=== PATIENT | female | born 1945 | race Caucasian/White ===

== ENCOUNTER 2016-05-26 12:58 | Outpatient (CLI) | payer MEDICARE, OTHER | END 2016-05-26 12:59 | disposition home or self-care (01) | DX: C50.919 Malignant neoplasm of unspecified site of unspecified female breast (principal); N95.8 Other specified menopausal and perimenopausal disorders ==

== ENCOUNTER 2016-07-17 11:20 | Outpatient (CLI) | payer MEDICARE, OTHER | END 2016-07-17 11:21 | disposition home or self-care (01) | LOC: SC 11:20 | PROVIDERS: ATTEND Nurse Practitioner Family | DX: G47.33 Obstructive sleep apnea (adult) (pediatric) (principal) | CPT/HCPCS: 99214; G0463; 99212 ==

== ENCOUNTER 2016-12-09 14:02 | Outpatient (CLI) | payer MEDICARE, OTHER ==
--- NOTE | 2016-12-09 17:33 | Mammography Report ---
DIGITAL BILATERAL DIAGNOSTIC MAMMOGRAM: 12/09/2016 COMPARISON: Mammogram 11/22/2015. INDICATION: Prior left breast cancer. Surgery approximately 3 years ago. TECHNIQUE: Bilateral MLO and CC breast views with and without displacement. FINDINGS: The breast parenchyma is heterogeneously dense, which may limit the sensitivity of mammogr aphy. No mass, architectural distortion, or concerning cluster of microcalcifications is seen. There are bilateral subpectoral implants. There is a scar marker and soft tissue loss with postsurgical distortion of the left breast, stable f indings. IMPRESSION: BI-RADS CATEGORY 2, BENIGN FINDINGS. Recommend annual mammography. STANDARD QUALIFYING STATEMENTS 1. This examination was reviewed with the aid of Computer-Aided Detection (CAD). 2. A negative or benign imaging report should not delay biopsy if clinically suspicious findings are present. Consider surgical consultation if warranted. More than 5% of cancers are not identified by i maging. 3. Dense breasts may obscure an underlying neoplasm. JOB #: [id number] EXT JOB #:
== END 2016-12-09 14:03 | disposition home or self-care (01) ==
LOC: DI 14:02
PROVIDERS: ATTEND Internal Medicine Hematology & Oncology
DX: C50.412 Malignant neoplasm of upper-outer quadrant of left female breast (principal)
CPT/HCPCS: 77066

== ENCOUNTER 2017-07-03 16:30 | Outpatient (CLI) | payer MEDICARE, OTHER ==
--- NOTE | 2017-07-04 15:48 | MRI Report ---
EXAM: MRI LUMBAR SPINE WITHOUT CONTRAST EXAM DATE: 07/03/2017 05:19 PM. CLINICAL HISTORY: Low back pain. Right lower extremity radiculopathy. COMPARISON: None. TECHNIQUE: Multiplanar, multisequence T1-weighted and fluid-sensitive sequences of the lumbar spine f rom T12 to S1 without contrast. Other: None. FINDINGS: Spinal Cord: The conus terminates at T12-L1. Unremarkable appearance of the conus medullaris. Alignment: 25 degrees of dextroscoliosis centered at L1-L2. Rightward lateral subluxation of L2 on L3 and L3 on L4. Bone Marrow: Five [id number]-[id number]-amncpjv lumbar vertebral bodies are assumed. Moderately prominent multileve l degenerative endplate signal changes, most severe at and below L2. No acute compression fracture de formity. Diffuse degenerative disk disease and facet arthropathy. Varying degrees of hypertrophic deg enerative vertebral body marginal spurring at all lumbar levels. Disk Levels/Facets: T12-L1: Mild to moderate chronic degenerative changes but without significant stenosis or focal disk herniation. L1-L2: Moderately prominent chronic degenerative disk disease and facet arthropathy. Broad-based disk bulge. No significant stenosis. L2-L3: Moderate to severe degenerative disk disease. Broad-based disk bulge with osteophyte, asymmetr ic, especially bulky far laterally to the left. Mild central canal stenosis. Foraminal narrowing is n egligible on the right but at least moderate on the left. L3-L4: Moderate to severe chronic degenerative disk disease and facet arthropathy. Broad-based disk b ulge with osteophyte is present extending laterally into both foramina. Moderate to severe central st enosis. Severe right lateral recess stenosis. Bilateral moderate to severe foraminal stenosis. Large bulky asymmetric far right lateral disk osteophyte complex protrusion. L4-L5: Moderately prominent degenerative disk disease and facet arthropathy. Prominent chronic far ri ght lateral hypertrophic degenerative osteophytic spurring. No focal disk extrusion. Patent central c anal and neural foramina. L5-S1: Chronic moderate to severe degenerative disk disease. Moderately prominent facet arthropathy. Diffuse annular disk bulge, most bulky to the right of midline. Disk bulge with osteophyte extends la terally into both foramina. Asymmetric far right lateral broad-based disk osteophyte complex is also present. Patent central canal. Mild right lateral recess stenosis. Moderate left and moderate to bobby re right foraminal stenosis. Musculature: Moderately prominent diffuse posterior paraspinal muscle fatty atrophy. Other: None. IMPRESSION: 1. Multiple chronic-appearing degenerative subluxations and approximately 25 degrees of upper lumbar dextroscoliosis. 2. Moderate to severe central stenosis at L3-L4 and severe right lateral recess stenosis at L3-L4 lev el. 2. Prominent chronic multilevel hypertrophic degenerative marginal spurring. 4. Broad-based disk bulges and protrusions with osteophyte are present with extension to varying degr ees into the bilateral neural foramina at multiple levels. 5. Potentially significant multilevel degenerative foraminal stenosis. Foraminal narrowing appears es pecially prominent on the left at L2-L3, left greater than right at L3-L4 and on the right at L5-S1. Comment: The following findings are so common in adults without low back pain that while we report th eir presence, they must be interpreted with caution and in the context of the clinical situation. (Re nichol Mack et al, Spine 2001) Prevalence of findings in patients without low back pain: Disk degeneration (any evidence): 92% Disk desiccation/T2 signal loss: 83% Disk height loss: 56% Disk bulge: 64% Disk protrusion: 32% Annular tear/high intensity zone: 38% [facility] Referring Provider Line: [phone] SITE ID: [id number]
== END 2017-07-03 16:31 | disposition home or self-care (01) ==
LOC: DI 16:30
PROVIDERS: ATTEND Orthopaedic Surgery
DX: M54.5 Low back pain (principal); M48.061 Spinal stenosis, lumbar region without neurogenic claudication; M51.86 Other intervertebral disc disorders, lumbar region
CPT/HCPCS: 72148

== ENCOUNTER 2017-09-14 09:32 | Outpatient (CLI) | payer MEDICARE, OTHER | END 2017-09-14 09:33 | disposition home or self-care (01) | LOC: SC 09:32 | PROVIDERS: ATTEND Nurse Practitioner Family | DX: G47.33 Obstructive sleep apnea (adult) (pediatric) (principal) | CPT/HCPCS: 99213; G0463; 99212 ==

== ENCOUNTER 2017-11-26 08:48 | Outpatient (CLI) | payer MEDICARE, OTHER ==
--- NOTE | 2017-11-26 11:21 | Mammography Report ---
Reason: AFSANEH lee IMPS ELIZABET Procedure Date: 11/26/2017 Accession Number: [id number] / [id number] Procedure: RADHAMES - Diagnostic Bilat 3D Elizabet CPT Code: 12483 FULL RESULT: EXAM: Diagnostic Bilat 3D Elizabet DATE: 11/26/2017 9:58 AM CLINICAL HISTORY: 72 year-old nulliparous female with personal history of left breast cancer status post lumpectomy and radiation in 2013. TECHNIQUE: Bilateral CC and MLO views were obtained with 2-D and 3-D technique in implant displaced fashion and non-implant displaced fashion in 2-D. COMPARISON: 12/09/2016, 11/22/2015, 05/08/2015, 10/26/2014. FINDINGS: The breasts demonstrate heterogeneously dense fibroglandular parenchyma bilaterally. Intact bilateral breast implants are identified. Postsurgical changes are again seen in the left breast and appear overall stable. No suspicious mass, cluster of microcalcifications or architectural distortion is identified. IMPRESSION: Benign findings RECOMMENDATION: Recommend routine annual Screening mammography unless otherwise clinically indicated. BIRADS CATEGORY 2: Benign findings STANDARD QUALIFYING STATEMENTS: 1. This examination was not reviewed with the aid of Computer-Aided Detection (CAD). 2. A negative or benign imaging report should not delay biopsy if clinically suspicious findings are present. Consider surgical consultation if warrented. More than 5% of cancers are not identified by imaging. 3. Dense breasts may obscure an underlying neoplasm. 4. This examination was reviewed with the aid of 3D imaging (tomography).
== END 2017-11-26 08:49 | disposition home or self-care (01) ==
LOC: DI 08:48
PROVIDERS: ATTEND Nurse Practitioner Adult Health
DX: C50.412 Malignant neoplasm of upper-outer quadrant of left female breast (principal)
CPT/HCPCS: 77062

== ENCOUNTER 2018-08-18 12:14 | Day surgery (SDC) | payer MEDICARE, OTHER ==
[2018-08-18] MEDS ORDERED: LACTATED RINGERS 1,000 ML IV ONE ×2 (12:39→14:35)
[2018-08-18] MEDS ORDERED: MIDAZOLAM 2 MG/2 ML VIAL IVP ONE (13:56)
[2018-08-18] MEDS ORDERED: fentaNYL 250 MCG/5 ML VIAL IVP ONE (13:56)
[2018-08-18 14:48] VITALS: BP 106/70
== END 2018-08-18 12:15 | disposition home or self-care (01) ==
LOC: SDS 12:14
PROVIDERS: ATTEND Surgery
PROC: 0DJD8ZZ Inspection of Lower Intestinal Tract, Via Natural or Artificial Opening Endoscopic (ICD-10-PCS; principal; 2018-08-18 12:30)
DX: R19.5 Other fecal abnormalities (principal); K64.8 Other hemorrhoids; I10 Essential (primary) hypertension; Z79.899 Other long term (current) drug therapy; Z79.82 Long term (current) use of aspirin; Z80.9 Family history of malignant neoplasm, unspecified
CPT/HCPCS: 45378; J7120

== ENCOUNTER 2018-09-01 15:44 | Outpatient (CLI) | payer MEDICARE, OTHER | END 2018-09-01 15:45 | disposition home or self-care (01) | LOC: SC 15:44 | PROVIDERS: ATTEND Nurse Practitioner Family | DX: G47.33 Obstructive sleep apnea (adult) (pediatric) (principal) | CPT/HCPCS: 99214; G0463; 99212 ==

== ENCOUNTER 2019-05-12 08:51 | Outpatient (CLI) | payer MEDICARE, OTHER ==
[2019-05-12 16:25] LABS: HEMOGLOBIN A1C 0.81 g/dL; HEMOGLOBIN A1C % 7.4 % (4.6-6.2)
[2019-05-12 16:28] LABS: ALBUMIN/GLOBULIN RATIO 1.4 (1.0-2.2); ALKALINE PHOSPHATASE 46 IU/L (42-121); ALT ALANINE AMINOTRANSFERASE 33 IU/L (10-60); AST ASPARTATE AMINOTRANSFERASE 27 IU/L (10-42); BILIRUBIN,TOTAL 0.5 mg/dL (0.2-1.0); BUN - BLOOD UREA NITROGEN 16 mg/dL (6-20); CALCIUM 9.1 mg/dL (8.5-10.3); CARBON DIOXIDE - CO2 28 mmol/L (21-32); CHLORIDE 100 mmol/L (101-111); CHOL/HDL RATIO 3.4 (<4.4); CHOLESTEROL 154 mg/dL; CREATININE 0.6 mg/dL (0.4-1.0); GLUCOSE 161 mg/dL (70-100); HDL CHOLESTEROL 45 mg/dL; LDL CHOLESTEROL,CALCULATED 77 mg/dL; LDL/HDL RATIO 1.7 (<4.4); SODIUM 138 mmol/L (135-145); TOTAL PROTEIN 6.9 g/dL (6.7-8.2); VLDL CHOLESTEROL 32 mg/dL
== END 2019-05-12 08:52 | disposition home or self-care (01) ==
LOC: LAB.S 08:51
PROVIDERS: ATTEND Physician Assistant
DX: E11.9 Type 2 diabetes mellitus without complications (principal); E78.2 Mixed hyperlipidemia
CPT/HCPCS: 36415; 80053; 80061; 83036; 83721

== ENCOUNTER 2019-09-07 10:24 | Outpatient (CLI) | payer MEDICARE, OTHER ==
--- NOTE | 2019-09-07 11:17 | SLEEP CARE CONSULTATION ---
Information from patient questionnaire entered by Guillermina Gibbons. I have reviewed and concur with the information entered by Guillermina Gibbons. This document represents the service I personally performed and the decisions made by me, Angelica Singleton, RN, MSN, [employer]. History of Present Illness Service Date and Time: 09/07/2019 1024 Previous diagnosis: Severe, Obstructive Sleep Apnea-Hypopnea Syndrome AHI: 45.4 Reason for follow up: annual Accompanied by: Spouse Equipment type: CPAP Equipment obtained from: [employer] (transfered last year - getting supplies as needed) Mask style: Nasal (wisp) Mask brand: Respironics Backup mask available: Yes (old mask ) Last cushion change: a month ago Prior sleep studies: Yes Year and Where: 2015 [facility] Type of Sleep Study: Polysomnography CPAP Compliance Data - Data Reviewed with Patient Average duration of nightly device use: 10h 7m Compliance rate %: 99.4 Current pressure setting (cmH2O): 10 Humidity settin Heated hose settin Average residual AHI: 0.9 Average large leak: 10m 43s Subjective Patient concerns: reports: air blowing in eyes (could be from hand towel barrier over vent per patient so air does not disturb spouse), mask leak noise (was occurring for a while and waking to dry eyes but none recently. Does not recall if better after new cushion. ), dry mouth, nose, throat (occasional dry mouth a couple times a months ), other (runny nose throughout the day years . uses Claritn 10mg daily for past idiopathic mild swelling of throat. ). denies: aerophagia, mask discomfort, condensation in mask/hose, nasal congestion, epistaxis Observed to snore while using device: No Current pressure setting perceived as: comfortable On therapy, patient: reports: awakening more refreshed, being more awake and alert during the day, more rested overall. denies: sleeping better, drowsiness while driving Current [place] Sleepiness Scale score: 1 Allergies and Home Medications Known drug allergies: Yes (see list ) Home medication list reviewed: No ( diabetic medication change to Metformin ER ) Review of Systems Review of systems same as previous: Yes Physical Exam Blood Pressure: 120/70 Cuff size: regular Heart Rate: 56 (regular) O2 Saturation: 96 Height: 5 ft Weight: 158 lb (stable) Body Mass Index: 30.8 BMI Classification: Obese Impression and Plan 1. Obstructive Sleep Apnea-Hypopnea Syndrome, severe, with good treatment compliance and good apnea control. On CPAP therapy, the patient has better sleep quality and is more rested overall. Patient is a long sleeper, currently averaging 10 hours, her past two years average was 9.5 and 9.45 hours. Thus she is advised to follow up with PCP if she finds she needs more than 10 hours of sleep consistently to rule if due to other medical condition. To reduce risk of air going into eyes from towel cover to prevent vent bothering spouse, I advised to put a pillow barrier instead between spouse and patient. For intermittent oral dryness, she can adjust humidity. Verbal instructions given and can have [employer] instruct. In addition the chronic rhinorrhea could be from allergies and Claritin not working any more. She may need to try another antihistamine or nasal spray. She is advised to follow up with PCP for further evaluation due to history of idiopathic mild throat swelling that she now takes her claritin for. Patient has gained a few pounds. Currently patients BMI is 30.7 obesity class . Obesity increases the risk of apnea, CPAP pressure requirements and overall health risks especially cardiovascular and diabetes. Thus patient is advised to lose weight. A diet consultation can be helpful in achieving optimal weight loss goals. The BMI chart was reviewed. Patient encouraged to discuss their weight loss goals with their PCP and consider a referral to a hand therapist. The patient's CPAP pressure should accommodate some weight loss. Symptoms to repo rt for additional pressure adjustment discussed. Patient's apnea severity and rationale for treatment to reduce apnea, improve sleep quality and reduce cardiovascular and cerebrovascular events was reviewed. I also reviewed the benefit of consistent device use of CPAP for hypertension, diabetes. * Continue auto CPAP pressure at 10 cmH2O * Implement methods to reduce oral dryness/ rhinorrhea * Notify me if snoring with mask or feeling that the pressure is too much or too little * Attempt to lose weight * Call this office if any problems using CPAP * Return for follow up in 1 year , or sooner if concerns arise Visit Type: In Office Time Spent with Patient (minutes): 31 Provider Statement: I spent 100% of the Face to Face Visit with the patient with greater than 50% spent counseling the patient and coordination of care.
[2019-09-07 11:18] VITALS: BP 120/70
== END 2019-09-07 10:25 | disposition home or self-care (01) ==
LOC: SC 10:24
PROVIDERS: ATTEND Nurse Practitioner Family
DX: G47.33 Obstructive sleep apnea (adult) (pediatric) (principal); E66.9 Obesity, unspecified; Z68.30 Body mass index [BMI] 30.0-30.9, adult
CPT/HCPCS: 99214; G0463; 99212

== ENCOUNTER 2020-06-05 10:36 | Outpatient (CLI) | payer MEDICARE, OTHER ==
--- NOTE | 2020-06-05 16:49 | XRAY Report ---
PROCEDURE: Hip w/Pelvis 2-3V LT INDICATIONS: LEFT HIP PAIN TECHNIQUE: AP pelvis with lateral view(s) of the left hip(s). COMPARISON: None. FINDINGS: Bones: No fractures or dislocations. Symmetric appearing bilateral hip joint osteoarthritic changes are seen. No evidence of avascular necrosis of femoral head. Pelvic ring appears intact. No suspici ous bony lesions. Degenerative disc disease in visualized lower lumbar spine is seen. Soft tissues: The visualized bowel gas pattern is normal. No suspicious soft tissue calcifications. IMPRESSION: Bilateral hip joint osteoarthritis. No left hip fracture or dislocation. No evidence of a vascular necrosis. Degenerative disc disease in lower lumbar spine. Reviewed by: Jonny Boyle MD on 06/05/2020 4:47 PM PDT Approved by: Jonny Boyle MD on 06/05/2020 4:47 PM PDT Station ID: [id number]
== END 2020-06-05 10:37 | disposition home or self-care (01) ==
LOC: DI 10:36
PROVIDERS: ATTEND Registered Nurse
DX: M16.0 Bilateral primary osteoarthritis of hip (principal); M47.816 Spondylosis without myelopathy or radiculopathy, lumbar region

== ENCOUNTER 2020-06-20 15:44 | Outpatient (CLI) | payer MEDICARE, OTHER ==
--- NOTE | 2020-06-20 17:03 | Ultrasound Report ---
PROCEDURE: Ext Limited Non Vascular INDICATIONS: SWELLING LOWER LIMB LEFT. Patient reports the area of concern is the left hip region pe rsisting for approximately 2 years. TECHNIQUE: Real-time scanning was performed of the area of patient's clinical concern, centered on t he left hip area, with image documentation. COMPARISON: Prior hip plain film imaging 06/05/2020. Prior MR LS-spine 07/03/2017.. FINDINGS: Technique assessment over the area of patient's clinical concern reveals no underlying cystic or xuan d mass, or architectural distortion within the soft tissues. A lipoma is not identified. IMPRESSION: Etiology of current symptomatology is not found by ultrasound. MR scanning without and w ith contrast may be warranted if clinical concerns persist or increase. Reviewed by: Nick Vigil MD on 06/20/2020 5:02 PM PDT Approved by: Nick Vigil MD on 06/20/2020 5:02 PM PDT Station ID: [id number]
== END 2020-06-20 15:45 | disposition home or self-care (01) ==
LOC: DI 15:44
PROVIDERS: ATTEND Registered Nurse
DX: R22.42 Localized swelling, mass and lump, left lower limb (principal)

== ENCOUNTER 2020-09-12 10:29 | Outpatient (CLI) | payer MEDICARE, OTHER ==
--- NOTE | 2020-09-12 11:03 | SLEEP CARE CONSULTATION ---
Information from patient questionnaire entered by Vibha Issa. I have reviewed and concur with the information entered by Vibha Issa. This document represents the service I personally performed and the decisions made by , Chantale Weber ARNP. History of Present Illness Service Date and Time: 09/12/2020 1029 Previous diagnosis: Severe, Obstructive Sleep Apnea-Hypopnea Syndrome AHI: 45.4 (in 2016) Reason for follow up: annual (last seen 08/2019) Equipment type: CPAP Equipment obtained from: [employer] (getting supplies as needed) Mask style: Nasal Mask brand: Respironics (Wisp) Backup mask available: Yes (old mask) Last cushion change: 2 weeks Prior sleep studies: Yes Year and Where: 2016 - [facility] HPI additional information: BRENDA WANG was diagnosed to have severe, AHI 45.4, obstructive sleep apnea-hypopnea syndrome and returned today with spouse for CPAP therapy annual follow-up. CPAP Compliance Data - Data Reviewed with Patient Average duration of nightly device use: 9 hr 52 min Compliance rate %: 100 (180 days) Current pressure setting (cmH2O): 10 Humidity settin Heated hose settin Average residual AHI: 0.7 Average large leak: 11 min 26 sec Subjective Patient concerns: reports: mask leak noise (adjustment usually resolves this). denies: aerophagia, mask discomfort, air blowing in eyes, condensation in mask/hose, nasal congestion, dry mouth, nose, throat, epistaxis, other Observed to snore while using device: No Current pressure setting perceived as: comfortable On therapy, patient: reports: sleeping better, awakening more refreshed, being more awake and alert during the day, more rested overall. denies: drowsiness while driving Initial [place] Sleepiness Scale score: 4 (in 2016) Current [place] Sleepiness Scale score: 1 Allergies and Home Medications Home medication list reviewed: Yes (no changes) Review of Systems Review of systems same as previous: Yes (no changes) Physical Exam Heart Rate: 77 O2 Saturation: 96 Height: 5 ft 1 in Weight: 139 lb Body Mass Index: 26.2 BMI Classification: Overweight Impression and Plan 1. Obstructive Sleep Apnea-Hypopnea Syndrome, severe, with excellent treatment compliance and excellent apnea control. On CPAP therapy, the patient has better sleep quality and is more rested overall. I discussed with patient that [employer] has a recall on several devices like the patients machine. Patient was encouraged to register their device online with [employer] for the recall to see if their device is affected. If their device is affected they should start a claim. Patient denies any black particles seen in machine or hoses, any unusual odors coming from device. Patient has not experienced any physical symptoms such as upper airway irritation, headache, skin or eye irritation, asthma, nausea/vomiting, difficulty breathing or chest pain. Patient informed that they may use an inline CPAP filter that they can obtain online to reduce chance of any particles being inhaled or ingested. We discussed thoroughly the health risks of not using the CPAP versus continuing use with the filter in place. If patient is not able to sleep due to waking up choking, gasping for air or other respiratory distress that they may decide to continue using it until it is either replaced or repaired. Since the patients current machine is at least 5 years old the patient may opt to update their device with a device that is not on the recall. The patients CPAP is over 5 years old and of reasonable use. Thus, the CPAP will be updated. A DWO prescription will be made. Compliance guidelines for new device and follow up discussed. Patient voiced understanding and agreement with plan. Patient's apnea severity and rationale for treatment to reduce apnea, improve sleep quality and reduce cardiovascular and cerebrovascular events was reviewed. I also reviewed the benefit of consistent device use of CPAP for hypertension and diabetes. * Continue CPAP pressure at 10 cmH2O * Updates device and supplies * Notify me if snoring with mask or feeling that the pressure is too much or too little * Attempt to lose weight * Call this office if any problems using CPAP * Return for follow up one month after obtaining new device, or sooner if concerns arise Counseling Topics: Spare mask, Weight loss health impact Visit Type: In Office Other Participants: Spouse/Significant Other Time Spent with Patient (minutes): 22 Provider Statement: I spent 100% of the Face to Face Visit with the patient with greater than 50% spent counseling the patient and coordination of care.
== END 2020-09-12 10:30 | disposition home or self-care (01) ==
LOC: SC 10:29
PROVIDERS: ATTEND Nurse Practitioner Family
DX: G47.33 Obstructive sleep apnea (adult) (pediatric) (principal)
CPT/HCPCS: 99213; G0463; 99212

== ENCOUNTER 2020-11-20 10:32 | Outpatient (CLI) | payer MEDICARE, OTHER ==
--- NOTE | 2020-11-20 10:53 | SLEEP CARE CONSULTATION ---
Information from patient questionnaire entered by Guillermina Gibbons. I have reviewed and concur with the information entered by Guillermina Gibbons. This document represents the service I personally performed and the decisions made by , Chantale Weber ARNP. History of Present Illness Service Date and Time: 11/20/2020 1032 Previous diagnosis: Severe, Obstructive Sleep Apnea-Hypopnea Syndrome AHI: 45.4 (in 2016) Reason for follow up: first compliance after device update Equipment type: CPAP Equipment obtained from: [employer] (getting supplies as needed) Mask style: Full face Backup mask available: Yes (old mask) Last cushion change: 1.5 weeks [facility] Type of Sleep Study: Polysomnography HPI additional information: BRENDA WANG was diagnosed to have severe, AHI 45.4, obstructive sleep apnea-hypopnea syndrome and returned today for CPAP therapy first compliance after updating device follow-up. Sleep Study - Results Prior [facility]: Yes [facility] Compliance Data - Data Reviewed with Patient Average duration of nightly device use: 10 hours 1 minute Compliance rate %: 100 Current pressure setting (cmH2O): 10 Humidity settin Heated hose settin Average residual AHI: 0.8 Average large leak: 0 seconds Subjective Patient concerns: denies: aerophagia, mask discomfort, air blowing in eyes, mask leak noise, condensation in mask/hose, nasal congestion, dry mouth, nose, throat, epistaxis, other Observed to snore while using device: No Current pressure setting perceived as: comfortable On therapy, patient: reports: sleeping better, awakening more refreshed, being more awake and alert during the day, more rested overall. denies: drowsiness while driving Initial [place] Sleepiness Scale score: 4 (in 2016) Current [place] Sleepiness Scale score: 1 Allergies and Home Medications Home medication list reviewed: Yes (no changes) Review of Systems Review of systems same as previous: Yes (no changes) Physical Exam Heart Rate: 70 O2 Saturation: 98 Height: 5 ft 1 in Weight: 138 lb Body Mass Index: 26.0 BMI Classification: Overweight Impression and Plan 1. Obstructive Sleep Apnea-Hypopnea Syndrome, severe, with excellent treatment compliance and excellent apnea control. On CPAP therapy, the patient has better sleep quality and is more rested overall. Patient is very happy with her new device and states that [employer] was able to get it to her very quickly. Patient was asking about a cleaning device for her CPAP. I informed her that the FDA has not been able to to adequate testing to ensure that these are safe for use. She voiced understanding. Patient states she has lost about 20 pounds intentionally this last year. She lost 1 pound since her last visit. I encouraged her to continue to try to lose weight. Patient's apnea severity and rationale for treatment to reduce apnea, improve sleep quality and reduce cardiovascular and cerebrovascular events was reviewed. I also reviewed the benefit of consistent device use of CPAP for hypertension and diabetes. * Continue CPAP pressure at 10 cmH2O * Notify me if snoring with mask or feeling that the pressure is too much or too little * Continue to try to lose weight * Call this office if any problems using CPAP * Return for follow up in 1 year, or sooner if concerns arise Counseling Topics: Spare mask, Weight loss health impact Visit Type: In Office Time Spent with Patient (minutes): 16 Provider Statement: I spent 100% of the Face to Face Visit with the patient with greater than 50% spent counseling the patient and coordination of care.
== END 2020-11-20 10:33 | disposition home or self-care (01) ==
LOC: SC 10:32
PROVIDERS: ATTEND Nurse Practitioner Family
DX: G47.33 Obstructive sleep apnea (adult) (pediatric) (principal)
CPT/HCPCS: 99212; G0463

== ENCOUNTER 2021-05-08 08:39 | Outpatient (CLI) | payer MEDICARE, OTHER ==
--- NOTE | 2021-05-09 11:01 | Mammography Report ---
BILATERAL DIGITAL SCREENING MAMMOGRAM 3D/2D WITH AUGMENTATION: 05/08/2021 CLINICAL: Routine screening. Routine screening. Personal history of left breast cancer. Comparison is made to exams dated: 11/26/2017 mammogram, 08/01/2019 mammogram, and 12/09/2016 mammogr am - [facility]. There are scattered fibroglandular elements in both breasts. Bilateral breast implants are stable. There are benign post operative findings in the left breast. No significant masses, calcifications, or other findings are seen in either breast. There has been no significant interval change. IMPRESSION: BENIGN There is no mammographic evidence of malignancy. A 1 year screening mammogram is recommended. This exam was interpreted at Station ID: [id number]. NOTE: For mammograms, a report in lay terms will be sent to the patient. Approximately 15% of breast malignancies will not be visualized mammographically. In the management of a palpable breast mass, a negative mammogram must not discourage biopsy of a clinically suspicious lesion. Electronically Signed By: Nelson aHir M.D. at/navrad:05/08/2021 17:23:44 ACR BI-RADS Category 2: Benign Finding(s) 3342F PARENCHYMAL PATTERN: (A) - The breast(s) demonstrate(s) scattered fibroglandular densities. BI-RADS CATEGORY: (2) - 2 RECOMMENDATION: (ANNUAL) - Recommend routine annual screening mammography. [id number] 1 year screening LATERALITY: (B)
== END 2021-05-08 08:40 | disposition home or self-care (01) ==
LOC: DI.S 08:39
PROVIDERS: ATTEND Physician Assistant
DX: Z12.31 Encounter for screening mammogram for malignant neoplasm of breast (principal); Z85.3 Personal history of malignant neoplasm of breast

== ENCOUNTER 2022-01-22 11:28 | Outpatient (CLI) | payer MEDICARE, OTHER ==
[2022-01-22 12:21] VITALS: BP 100/62
--- NOTE | 2022-01-22 12:21 | SLEEP CARE CONSULTATION ---
Information from patient questionnaire entered by Da Linn. I have reviewed and concur with the information entered by Da Linn. This document represents the service I personally performed and the decisions made by me, Chantale Weber ARNP. History of Present Illness Service Date and Time: 01/22/2022 1128 Previous diagnosis: Severe, Obstructive Sleep Apnea-Hypopnea Syndrome AHI: 45.4 (in 2015) Reason for follow up: annual (LAST SEEN 11/2020) Accompanied by: Spouse Equipment type: CPAP (Dreamstation 2) Equipment obtained from: [employer] (getting supplies as needed) Mask style: Nasal Mask brand: Respironics ([place]) Backup mask available: Yes (old mask) Last cushion change: 1 week [facility] Type of Sleep Study: Polysomnography HPI additional information: BRENDA WANG was diagnosed to have severe, AHI 45.4, obstructive sleep apnea-hypopnea syndrome and returned today for CPAP therapy annual follow-up. Sleep Study - Results Type of Sleep Study: Polysomnography Prior sleep studies: Yes [facility] Compliance Data - Data Reviewed with Patient Average duration of nightly device use: 9 HRS 49 MIN Compliance rate %: 97.2 (07/24/21-01/19/22; 179/180 days used) Current pressure setting (cmH2O): 10 Average residual AHI: 0.7 Central apnea: 0.1 Obstructive apnea: 0.2 Subjective Missed days of use due to: reports: other (power outages) Patient concerns: denies: aerophagia, mask discomfort, air blowing in eyes, mask leak noise, condensation in mask/hose, nasal congestion, dry mouth, nose, throat, epistaxis Observed to snore while using device: No Current pressure setting perceived as: comfortable On therapy, patient: reports: sleeping better, awakening more refreshed, being more awake and alert during the day, more rested overall. denies: drowsiness while driving Initial Gaston Sleepiness Scale score: 4 (in 2015) Current Gaston Sleepiness Scale score: 1 (01/22/2022) Allergies and Home Medications Drug allergies reviewed: Yes (flouride) Home medication list reviewed: Yes (no changes) Review of Systems Review of systems same as previous: Yes (no changes) Physical Exam Vital signs obtained and entered by: DA Oliver MA Blood Pressure: 100/62 (LEFT ARM) Cuff size: regular Heart Rate: 68 O2 Saturation: 96 Height: 5 ft 1 in Weight: 148 lb 9.6 oz Body Mass Index: 28.0 BMI Classification: Overweight Impression and Plan 1. Obstructive Sleep Apnea-Hypopnea Syndrome, severe, with good treatment compliance and good apnea control. On CPAP therapy, the patient has better sleep quality and is more rested overall. Patient has significant improvement of their sleep apnea and are satisfied with current CPAP therapy. Patient denies problems with oral dryness, nasal congestion, epistaxis, skin irritation or aerophagia. Patient's apnea severity and rationale for treatment to reduce apnea, improve sleep quality and reduce cardiovascular and cerebrovascular events was reviewed. I also reviewed the benefit of consistent device use of CPAP for hypertension and diabetes. 2. Overweight, unspecified. Currently patients BMI is 28.0. Obesity increases the risk of apnea, CPAP pressure requirements and overall health risks especially cardiovascular and diabetes. Thus patient is advised to lose weight. * Continue CPAP pressure at 10 cmH2O * Update supplies * Notify me if snoring with mask or feeling that the pressure is too much or too little * Attempt to lose weight * Call this office if any problems using CPAP * Return for follow up in 1 year, or sooner if concerns arise Counseling Topics: Spare mask, Weight loss health impact Visit Type: In Office Other Participants: Spouse/Significant Other Time Spent with Patient (minutes): 20 Provider Statement: I spent 100% of the Face to Face Visit with the patient with greater than 50% spent counseling the patient and coordination of care.
== END 2022-01-22 11:29 | disposition home or self-care (01) ==
LOC: SC 11:28
PROVIDERS: ATTEND Nurse Practitioner Family
DX: G47.33 Obstructive sleep apnea (adult) (pediatric) (principal); E66.3 Overweight; Z68.28 Body mass index [BMI] 28.0-28.9, adult
CPT/HCPCS: 99213; G0463; 99212

== ENCOUNTER 2022-06-16 10:42 | Outpatient (CLI) | payer MEDICARE, OTHER ==
--- NOTE | 2022-06-17 10:22 | Mammography Report ---
BILATERAL DIGITAL SCREENING MAMMOGRAM 3D/2D WITH AUGMENTATION: 06/16/2022 CLINICAL: Routine screening. Personal history of left breast cancer. Comparison is made to exams dated: 05/08/2021 mammogram, 08/01/2019 mammogram, 11/26/2017 mammogram, a nd 12/09/2016 mammogram - [facility]. There are scattered areas of fibroglandular density in both breasts (category b / 25%-50% glandular t issue). Bilateral breast implants are stable. There are benign post operative findings in the left breast. No significant masses, calcifications, or other findings are seen in either breast. There has been no significant interval change. IMPRESSION: BENIGN There is no mammographic evidence of malignancy. A 1 year screening mammogram is recommended. This exam was interpreted at Station ID: [id number]. NOTE: For mammograms, a report in lay terms will be sent to the patient. Approximately 15% of breast malignancies will not be visualized mammographically. In the management of a palpable breast mass, a negative mammogram must not discourage biopsy of a clinically suspicious lesion. Electronically Signed By: Boyd Wilburn M.D. [facility] [place]06/16/2022 14:16:33 letter sent: No_Letter ACR BI-RADS Category 2: Benign Finding(s) 3342F PARENCHYMAL PATTERN: (A) - The breast(s) demonstrate(s) scattered fibroglandular densities. BI-RADS CATEGORY: (2) - 2 Mammogram [id number] 1 year screening LATERALITY: (B)
== END 2022-06-16 10:43 | disposition home or self-care (01) ==
LOC: DI.S 10:42
PROVIDERS: ATTEND Nurse Practitioner Family
DX: Z12.31 Encounter for screening mammogram for malignant neoplasm of breast (principal); Z85.3 Personal history of malignant neoplasm of breast